=== PATIENT | male | born 1965 | race Caucasian/White ===

== ENCOUNTER 2019-07-05 04:19 | Observation (INO) ==
--- NOTE | 2019-07-05 04:25 | Emergency Department Note ---
Disposition Clinical Impression: Syncope due to orthostatic hypotension, Laceration, Dehydration, Left renal mass Anemia Qualifiers: Anemia type: unspecified type Qualified Code(s): D64.9 - Anemia, unspecified GI bleed Qualifiers: GI bleed type/associated pathology: melena Qualified Code(s): K92.1 - Melena Disposition: Admitted As Inpatient Condition: Fair Time of Disposition: 07:40 Syncope HPI - General Chief Complaint: ED Syncope Stated Complaint: Stood up to urniate and felt dizzy and fell down striking his head Time Seen by Provider: 07/05/19 04:22 Source: patient, EMS Mode of arrival: EMS Limitations: no limitations Nursing Notes Reviewed: Yes Vital Signs Reviewed: Yes - History of Present Illness HPI Narrative: 54-year-old male presents to the emergency department. He got up from sleeping in bed in the median felt lightheaded and went down to the ground. He did suffer a laceration to his right frontal scalp. He denies any loss of consciousness. He states that he tried to get back up and started to feel lightheaded and dizzy once again. States that he felt like maybe he was dehydrated because he was thirsty. He did not crash yesterday and did not drink that much fluid. He also states that he was postponing and did have some slight chest pain but does not describe it as a heaviness or pressure or sharp; just noticed that it was there. Denies any coronary artery disease Pt Subjective Complaint: loss of consciousness, felt faint, almost passed out Onset (ago): Just [employer] Number of episodes: 2 Duration: minutes(s) (2) Prodromal Symptoms: lightheaded Witnessed: no Context: at rest, getting out of bed Injuries Sustained Associated with Event: head (small laceration/contusion) Current Symptoms: none History: none Treatments prior to arrival: none, other (C collar placement) - Related Data Comment: Patient did have a c-collar placed prior to arrival. Home Medications Medication Instructions Recorded Confirmed No Known Home Drugs 07/05/19 07/05/19 Allergies Allergy/AdvReac Type Severity Reaction Status Date / Time No Known Allergies Allergy Verified 07/05/19 05:03 All systems ED: reviewed and negative except as stated. Constitutional: Denies: fever, chills, weakness, weight change Eyes: Denies: eye pain, eye discharge, vision change ENT ED: Denies: ear pain, throat pain, dental pain, hearing loss, epistaxis, congestion, dysphagia Cardiovascular: Denies: chest pain, palpitations, dyspnea on exertion, edema, syncope Respiratory: Denies: cough, dyspnea, wheezes, hemoptysis, stridor Gastrointestinal: Denies: abdominal pain, nausea, vomiting, diarrhea, constipation, hematemesis, melena, hematochezia Genitourinary: Denies: urgency, dysuria, frequency, hematuria Musculoskeletal: Denies: back pain, neck pain, arthralgia, myalgia Integumentary: Denies: rash, abrasion, lesions Neurological: Denies: headache, weakness, numbness, paresthesias, confusion, abnormal gait, vertigo Psychiatric: Denies: anxiety, depression, suicidal thoughts, homicidal thoughts, auditory hallucinations, visual hallucinations Endocrine: Denies: fatigue Hematological/Lymphatic: Denies: easy bleeding, easy bruising Allergic/Immunologic: Denies: facial swelling, urticaria Past Medical History - Past Medical History Attestation: Yes The following information was validated with the patient. Source: patient, nursing notes reviewed Physical Exam - General Limitations: no limitations General appearance: alert, in no apparent distress - Head Head exam: atraumatic, normocephalic, normal inspection, other (Except for a small less than 1.5 cm frontal scalp laceration just right of the midline) - Eye Eye exam: Present: normal appearance, PERRL, EOMI. Absent: scleral icterus, conjunctival injection, miosis, mydriasis, periorbital swelling, periorbital tenderness - ENT ENT exam: normal exam, normal oropharynx, mucous membranes moist - Neck Neck exam: Present: normal inspection, full ROM, trachea midline. Absent: tenderness - Chest Chest inspection: Present: normal inspection, symmetric chest wall rise. Absent: tenderness - Respiratory Respiratory exam: Present: normal lung sounds bilaterally. Absent: respiratory distress, wheezes - Cardiovascular Cardiovascular exam: Present: regular rate, normal rhythm, normal heart sounds - Abdominal Exam Abdominal exam: Present: soft, Non-Tender, normal bowel sounds. Absent: tenderness, distention, guarding, rebound, rigidity - Extremities Exam Extremities exam: Present: normal inspection, full ROM, normal capillary refill. Absent: tenderness, pedal edema - Back Exam Back exam: Present: normal inspection, full ROM. Absent: tenderness, CVA t enderness (R), CVA tenderness (L) - Neurological Exam Neurological exam: Present: alert, oriented X3, CN II-XII intact - Expanded Neurological Exam Patient oriented to: Present: person, place, time Speech: Present: fluid speech. Absent: receptive aphasia, expressive aphasia Cranial nerves: EOM function (II, III, IV, ): Normal, facial sensation (V): Normal, facial palsy (VII): Normal, gag reflex (IX): Normal, spinal accessory function (XI): Normal, tongue deviation (XII): Normal Cerebellar function: finger to nose: Normal, heel to garcía: Normal Coma Scale Eye Opening: Spontaneous Coma Scale Motor Response: Obeys Commands Coma Scale Verbal Response: Oriented Coma Scale Total: 15 - Psychiatric Psychiatric exam: Present: normal affect, normal mood. Absent: depressed - Skin Skin exam: Present: warm, dry, intact, normal color, other (Present small less than 1.5 cm laceration to the right frontal scalp) Course Course Narrative: Patient was placed in examination room. H&P is obtained. Patient had a syncopal episode after standing up from sleeping in bed. He did fall and hit his head. He did not stand up again and felt lightheaded once again. He denies any blurry vision or visual changes. Does not take any a nticoagulants. Therefore a syncope workup was obtained. Including EKG basic lab work and a CT of his head. CT his head did not show any intercranial pathology. The lacerations were repaired by me. Patient then had a CTA of his chest and the pelvis to rule out dissection. As he had some chest pain yesterday as well as a syncopal episode today. The CTA did not show an intra-thoracic pathology there was no dissection however, there is a complex left 2.5 same year renal cyst/mass. With the anemia which is new along with this finding there is a concern for a renal cell carcinoma. Patient will be admitted. Type and screen was obtained. Patient will be admitted and a consult will be made for him to surgery as well as urology the hospitalist. I did speak with and she does not sit the patient to her service Patient did add an approximate 705 when I was doing the laceration repair that he has been having dark stools. Hemoccult was obtained at that point. There is no rectal masses palpable. There was one hemorrhoid that was nonthrombosed. Stool is very dark and tarry. And for that reason Protonix 80 mg IV bolus was given followed by an 8 mg an hour drip - Reevaluation(s) Reevaluation #1: Patient is resting comfortably. Time: 04:42 - Consultations Consultation #1: Time: 08:09 Vital Signs Temperature 98.8 F 07/05/19 04:55 Pulse Rate 81 07/05/19 04:55 Respiratory Rate 20 07/05/19 04:55 Blood Pressure 129/78 07/05/19 04:55 O2 Sat by Pulse Oximetry 99 07/05/19 04:55 Temperature 98.8 F 07/05/19 04:55 Pulse Rate 84 07/05/19 07:46 Respiratory Rate 19 07/05/19 07:46 Blood Pressure 123/71 07/05/19 07:46 O2 Sat by Pulse Oximetry 98 07/05/19 07:46 Oxygen Delivery Oxygen Delivery Room Air Procedures - Laceration Laceration 1 Site: scalp Side (If applicable): right Size (cm): 1.5 Description: linear Depth: involves muscle layer Local Anesthetic: lidocaine 1% Amount of Anesthesia Used (mL): 4 Pre-repair: wound explored, irrigated extensively, deep structures intact Skin layer closed with: nylon Size: 5-0 Number of sutures/yamile: 6 Technique: running Laceration 2 Site: scalp Side (If applicable): right Size (cm): 0.5 Description: linear Depth: simple, single layer Local Anesthetic: lidocaine 1% Amount of Anesthesia Used (mL): 1 Pre-repair: wound explored, irrigated extensively, deep structures intact Skin layer closed with: nylon Size: 5-0 Number of sutures/yamile: 1 Technique: simple, interrupted Syncope - MDM Narrative Medical decision making narrative: Patient was placed in examination room. I did orthostatic blood pressures. The EKG. CT scan of his head neck. C-collar sorry in place. It was placed by EMS. He denies any ripping or tearing chest pain. However I do feel that he is clinically dehydrated and normal saline bolus was given. I we will obtain a CT of his head neck as mentioned The laceration will be repaired. I am also going to obtain a CTA of his chest and pelvis to rule out dissection since this did occur twice this to ensure this is not the case as he did have chest pain yesterday and then developed a syncopal episode this morning. - Differential Diagnosis Likely: syncope due to orthostatic hypotension, intracerebral hemorrhage, dehydration/metabolic disorder, trauma secondary to event - Medical Records Medical records reviewed: Yes I reviewed the patient's medical records. - Lab Data Lab results reviewed: Yes I reviewed the patient's lab results. Result diagrams: 07/05/19 05:04 07/05/19 05:04 Lab Results 07/05/19 07/05/19 07/05/19 Range/Units 05:04 05:04 05:04 WBC 13.2 H (4.3-11.1) K/mcL RBC 3.17 L (4.19-5.50) M/mcL Hgb 9.9 L (12.9-16.9) g/dL Hct 28.8 L (37.5-50.1) % MCV 90.9 (83.0-100.0) fL MCH 31.2 (28.0-33.3) pg MCHC 34.4 (31.6-35.5) g/dL RDW 12.4 (11.5-14.5) % Plt Count 235 (140-400) K/mcL MPV 11.1 (9.4-12.4) fL Immature Gran % 1.1 (0-4) % Seg Neutrophils % 78.2 % Lymphocytes % 12.7 % Monocytes % 5.7 % Eosinophils % 1.8 % Basophils % 0.5 % Neutrophils # 10.3 H (1.6-8.9) K/mcL Lymphocytes # 1.7 (0.6-4.6) K/mcL Monocytes # 0.8 (0.0-1.3) K/mcL Eosinophils # 0.2 (0.0-0.6) K/mcL Basophils # 0.1 (0.0-0.2) K/mcL PT 11.9 (9.4-12.1) Seconds INR 1.0 APTT 27.9 (26.0-36.0) Seconds Sodium 144 (136-145) mEq/L Potassium 3.9 (3.5-5.1) mEq/L Chloride 112 H (98-107) mEq/L Carbon Dioxide 27 (23-29) mEq/L BUN 35 H (6-20) mg/dL Creatinine 1.01 (0.70-1.30) mg/dL Est GFR ( Amer) > 60 (> 60) Est GFR (Non-Af Amer) > 60 (> 60) BUN/Creatinine Ratio 35 H (6-26) Glucose 132 H (70-105) mg/dL Calculated Osmolality 308 H (280-300) Calcium 8.6 (8.6-10.3) mg/dL Total Bilirubin 0.2 L (0.3-1.0) mg/dL AST 15 (13-39) Units/L ALT 17 (7-52) Units/L Alkaline Phosphatase 47 (34-104) Units/L Troponin I < 0.03 (< 0.04) ng/mL Serum Total Protein 5.6 L (6.4-8.9) g/dL Albumin 3.5 (3.5-5.7) g/dL Globulin 2.1 L (2.4-3.5) g/dL Albumin/Globulin Ratio 1.7 (1.1-2.2) Stool Occult Bld Scrn (Negative) 07/05/19 Range/Units 07:30 WBC (4.3-11.1) K/mcL RBC (4.19-5.50) M/mcL Hgb (12.9-16.9) g/dL Hct (37.5-50.1) % MCV (83.0-100.0) fL MCH (28.0-33.3) pg MCHC (31.6-35.5) g/dL RDW (11.5-14.5) % Plt Count (140-400) K/mcL MPV (9.4-12.4) fL Immature Gran % (0-4) % Seg Neutrophils % % Lymphocytes % % Monocytes % % Eosinophils % % Basophils % % Neutrophils # (1.6-8.9) K/mcL Lymphocytes # (0.6-4.6) K/mcL Monocytes # (0.0-1.3) K/mcL Eosinophils # (0.0-0.6) K/mcL Basophils # (0.0-0.2) K/mcL PT (9.4-12.1) Seconds INR APTT (26.0-36.0) Seconds Sodium (136-145) mEq/L Potassium (3.5-5.1) mEq/L Chloride (98-107) mEq/L Carbon Dioxide (23-29) mEq/L BUN (6-20) mg/dL Creatinine (0.70-1.30) mg/dL Est GFR ( Amer) (> 60) Est GFR (Non-Af Amer) (> 60) BUN/Creatinine Ratio (6-26) Glucose (70-105) mg/dL Calculated Osmolality (280-300) Calcium (8.6-10.3) mg/dL Total Bilirubin (0.3-1.0) mg/dL AST (13-39) Units/L ALT (7-52) Units/L Alkaline Phosphatase (34-104) Units/L Troponin I (< 0.04) ng/mL Serum Total Protein (6.4-8.9) g/dL Albumin (3.5-5.7) g/dL Globulin (2.4-3.5) g/dL Albumin/Globulin Ratio (1.1-2.2) Stool Occult Bld Scrn Positive A (Negative) - Radiology Data Radiology results reviewed: Yes I reviewed the patient's radiology results. HISTORY: ORDERING SYSTEM PROVIDED HISTORY: syncope FINDINGS: The lungs are without acute focal process. No effusion or pneumothorax. The cardiomediastinal silhouette is normal. The osseous structures are intact without acute process. XR/XR chest 1V portable IMPRESSION: Negative chest. D/ / Beryl Harding MD / Beryl Harding MD Interpreting Provider: Beryl Harding MD CT/CT CTA Dissection Study IMPRESSION: *No acute traumatic injury involving the chest, abdomen, and pelvis. *Indeterminate 3 mm noncalcified pulmonary nodule in the left lower lobe. Please see the follow-up imaging recommendations below. *Indeterminate cyst in the lower pole of the left kidney measuring 2.5 cm. This does not be criteria for simple cyst and follow up CT or MRI in a renal mass protocol is recommended for further evaluation. *Nonobstructing stone in the mid pole of the right kidney. D/ / Justus Garcia MD / Justus Garcia MD Interpreting Provider: Justus Garcia MD CT/CT head/brain wo con IMPRESSION: 1. No acute intracranial abnormality. 2. Thickened secretions in the left maxillary sinus, correlate with signs of acute sinusitis. D/ / Justus Garcia MD / Justus Garcia MD Interpreting Provider: Justus Garcia MD RDER #: [id number] CT/CT cervical spine wo con IMPRESSION: 1. No evidence of acute fracture in the cervical spine. D/ / Justus Garcia MD / Justus Garcia MD Interpreting Provider: Justus Garcia MD cc: Jeromy Wharton; ~ EXAMINATION: ONE XRAY VIEW OF THE CHEST 07/05/2019 4:47 am COMPARISON: 08/14/2008 HISTORY: ORDERING SYSTEM PROVIDED HISTORY: syncope FINDINGS: The lungs are without acute focal process. No effusion or pneumothorax. The cardiomediastinal silhouette is normal. The osseous structures are intact without acute process. XR/XR chest 1V portable IMPRESSION: Negative chest. D/ / Beryl Harding MD / Beryl Harding MD Interpreting Provider: Beryl Harding MD - EKG Data EKG attestation: Yes I reviewed and interpreted this EKG. EKG results narrative: EKG obtained and reviewed and interpreted by me. Normal sinus rhythm 70 bpm, normal axis normal intervals, no acute ST elevations or depressions to suggest infarction or ischemia. Compared to August 14, 2018 there is no acute changes. Critical Care Time Critical Care Time: Yes Total Critical Care Time: 30 Attestation: The high probability of a clinically significant, sudden or life threatening deterioration of the patient's condition required my full and direct attention, intervention and personal management.
[2019-07-05] MEDS ORDERED: 0.9 % Sodium Chloride 1,000 ML IVC ONE (04:28)
[2019-07-05] MEDS ORDERED: Td (TENIVAC) Vaccine 0.5 ML VIAL IM ONE (04:35)
[2019-07-05] MEDS ORDERED: Lidocaine -MPF 2% 5 ML VIAL INFILT ONE (04:36)
[2019-07-05] MEDS ORDERED: Isovue-370 500 ML BOTTLE IVP ONE (04:43)
[2019-07-05 05:20] LABS: Basophils # 0.1 K/mcL (0.0-0.2); Basophils % 0.5 %; Eosinophils # 0.2 K/mcL (0.0-0.6); Eosinophils % 1.8 %; Hematocrit 28.8 % (37.5-50.1); Hemoglobin 9.9 g/dL (12.9-16.9); Immature Granulocytes % 1.1 % (0-4); Lymphocytes # 1.7 K/mcL (0.6-4.6); Lymphocytes % 12.7 %; Mean Corpuscular HGB Conc 34.4 g/dL (31.6-35.5); Mean Corpuscular Hemoglobin 31.2 pg (28.0-33.3); Mean Corpuscular Volume 90.9 fL (83.0-100.0); Mean Platelet Volume 11.1 fL (9.4-12.4); Monocytes # 0.8 K/mcL (0.0-1.3); Monocytes % 5.7 %; Neutrophils # 10.3 K/mcL (1.6-8.9); Platelet Count 235 K/mcL (140-400); Red Blood Count 3.17 M/mcL (4.19-5.50); Red Cell Distribution Width 12.4 % (11.5-14.5); Segmented Neutrophils % 78.2 %; White Blood Count 13.2 K/mcL (4.3-11.1)
[2019-07-05 05:27] LABS: Prothrombin Time 11.9 Seconds (9.4-12.1)
[2019-07-05 05:30] LABS: Activated Partial Thrombo Time 27.9 Seconds (26.0-36.0)
[2019-07-05 05:39] LABS: Alanine Aminotransferase 17 Units/L (7-52); Albumin 3.5 g/dL (3.5-5.7); Albumin/Globulin Ratio 1.7 (1.1-2.2); Alkaline Phosphatase 47 Units/L (34-104); Aspartate Amino Transferase 15 Units/L (13-39); BUN/Creatinine Ratio 35 (6-26); Bilirubin,Total 0.2 mg/dL (0.3-1.0); Blood Urea Nitrogen 35 mg/dL (6-20); Calcium 8.6 mg/dL (8.6-10.3); Carbon Dioxide 27 mEq/L (23-29); Chloride 112 mEq/L (98-107); Globulin 2.1 g/dL (2.4-3.5); Glucose 132 mg/dL (70-105); Osmolality,Calculated 308 (280-300); Potassium 3.9 mEq/L (3.5-5.1); Sodium 144 mEq/L (136-145); Total Protein 5.6 g/dL (6.4-8.9); Troponin I < 0.03 ng/mL (< 0.04); eGFR For African Americans > 60 (> 60); eGFR For Non-African Americans > 60 (> 60)
[2019-07-05] MEDS ORDERED: Pantoprazole 40 MG VIAL IVP ONE (07:50)
[2019-07-05] MEDS: Pantoprazole 40 MG in 0.9 % Sodium Chloride Mini Bag 100 ML IVC SCH ×4 (08:52→23:32)
[2019-07-05] MEDS ORDERED: Acetaminophen 325 MG TABLET PO PRN (09:32)
[2019-07-05] MEDS ORDERED: Naloxone 0.4 MG/ML INJ IVP PRN (09:32)
[2019-07-05] MEDS ORDERED: Ondansetron 4 MG/2 ML VIAL IVP PRN (09:32)
--- NOTE | 2019-07-05 09:35 | Internal Med History&Physical ---
Date of Encounter: 07/05/19 Time of Encounter: 09:35 Internal Medicine - H&P: HPI History of present illness: Mr. Almonte is a 54 year old male with was no significant past medical history except for one episode of seizure long time ago who presented to the ER after with a complaint of sudden episode of loss of consciousness, what he end up hitting his OxyContin is scant and sustained a laceration. 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 This does not be criteria for a simple cyst and follow up CT or MRI in a renal mass protocol is recommended for further evaluation. the patient was admitted for further evaluation and management Past Med Surg Social Fam HX - Past Medical History Medical history: no medical history Psychiatric history: no psych history - Social History Smoking Status: Never smoker Smokeless Tobacco Status: No Alcohol use: rarely Drug use: none - Family History Father Name: Patient denies family history of prostate cancer Internal Medicine - H&P: Meds Pantoprazole Sodium [Protonix] 40 mg PO BID 14 Days #28 tablet. 07/07/19 [Rx] Sucralfate [Carafate] 1 gm PO QIDAC 28 Days #112 tablet 07/07/19 [Rx] Allergy/AdvReac Type Severity Reaction Status Date / Time No Known Allergies Allergy Verified 07/05/19 16:23 All Systems PM: A 10-system review of systems was performed and is negative for pertinent findings except as documented above in the HPI. - Constitutional Vitals: Temp Pulse Resp BP Pulse Ox 98.8 F 86 18 117/70 99 07/05/19 04:55 07/05/19 08:53 07/05/19 08:53 07/05/19 08:53 07/05/19 08:53 General appearance: Present: A&O X 3 Exam: . - Head Additional comments: right frontal laceration was noted - Neck Neck exam general surgery: Present: supple, trachea midline. Absent: lymphadenopathy - Respiratory Respiratory exam: Present: CTAB. Absent: accessory muscle use, rales, rhonchi, wheezes - Cardiovascular Cardiovascular exam: Present: RRR, +S1, +S2. Absent: diastolic murmur, gallop, rubs, systolic murmur - GI/Abdominal GI/Abdominal exam: Present: normal bowel sounds, soft, no peritoneal signs. Ab sent: distended, tenderness - Extremities Exam Extremities exam: Present: warm, radial pulses palpable and symmetrical. Absent: calf tenderness, cyanotic, pedal edema Internal Med - H&P Results - Labs CBC & Chem 7: 07/07/19 14:43 07/07/19 02:36 Labs: Short CBC 07/05/19 Range/Units 05:04 WBC 13.2 H (4.3-11.1) K/mcL Hgb 9.9 L (12.9-16.9) g/dL Hct 28.8 L (37.5-50.1) % Plt Count 235 (140-400) K/mcL Neutrophils # 10.3 H (1.6-8.9) K/mcL BMP 07/05/19 05:04 Sodium 144 Potassium 3.9 Chloride 112 H Carbon Dioxide 27 BUN 35 H Creatinine 1.01 Glucose 132 H Calcium 8.6 Cardiac Enzymes 07/05/19 Range/Units 05:04 Troponin I < 0.03 (< 0.04) ng/mL Liver Function 07/05/19 Range/Units 05:04 Total Bilirubin 0.2 L (0.3-1.0) mg/dL AST 15 (13-39) Units/L ALT 17 (7-52) Units/L Alkaline Phosphatase 47 (34-104) Units/L Albumin 3.5 (3.5-5.7) g/dL - Impressions ITS Impressions Chest X-Ray 07/05/19 04:28 IMPRESSION: Negative chest. D/ / Beryl Harding MD / Beryl Harding MD Interpreting Provider: Beryl Harding MD Cervical Spine CT 07/05/19 04:29 IMPRESSION: 1. No evidence of an acute fracture in the cervical spine. D/ / 07/05/2019 07:28:07 Justus Garcia MD / srini Interpreting Provider: Justus Garcia MD Head CT 07/05/19 04:29 IMPRESSION: 1. No acute intracranial abnormality. 2. Thickened secretions in the left maxillary sinus, correlate with signs of acute sinusitis. D/ / 07/05/2019 07:29:59 Justus Garcia MD / srini Interpreting Provider: Justus Garcia MD Dissection 07/05/19 04:43 IMPRESSION: 1. No acute traumatic injury involving the chest, abdomen, and pelvis. 2. Indeterminate 3 mm noncalcified pulmonary nodule in the left lower lobe. Please see the follow-up imaging recommendations below. 3. Indeterminate cyst in the lower pole of the left kidney measuring 2.5 cm. This does not be criteria for a simple cyst and follow up CT or MRI in a renal mass protocol is recommended for further evaluation. 4. Nonobstructing stone in the mid pole of the right kidney. RECOMMENDATIONS: Fleischner Society guidelines for follow-up and management of incidentally detected pulmonary nodules: Single Solid Nodule: Nodule size less than 6 mm In a low-risk patient, no routine follow-up. In a high-risk patient, optional CT at 12 months. - Low risk patients include individuals with minimal or absent history of smoking and other known risk factors. - High risk patients include individuals with a history or smoking or known risk factors. Radiology 2017 http://pubs.rsna.org/doi/full/10.1148/radiol.[email or web address] D/ / 07/05/2019 07:33:43 Justus Garcia MD / srini Interpreting Provider: Justus Garcia MD - Assessment and Plan (1) Syncope Status: Acute Assessment and plan: Syncope DD *vasovagal episode *TIA *Arrhythmia *Seizure PLAN: - Telemetry - Cardiac enzymes x 2 q 8hr - EKG now and in AM - 2D Echo - Carotid duplex - UA Qualifiers: Qualified Code(s): R55 - Syncope and collapse (2) Anemia Status: Acute Assessment and plan: we'll continue to monitor H&H, stool is Hemoccult positive . Qualifiers: Anemia type: unspecified type Qualified Code(s): D64.9 - Anemia, unspecified (3) Laceration Status: Acute (4) Left renal mass Status: Acute Assessment and plan: , CT scan of the abdomen revealed incidental finding of Indeterminate cyst in the lower pole of the left kidney measuring 2.5 cm. This does not be criteria for a simple cyst and follow up CT or MRI in a renal mass protocol is recommended for further evaluation.we'll consult neurology for further evaluation and management - Time Spent With Patient Total time spent is greater than 50% in coordination of care (as documented) at patient's floor/unit and/or counseling patient:
[2019-07-05] MEDS: 0.9 % Sodium Chloride 1,000 ML IVC SCH ×2 (10:41→19:29)
[2019-07-05] MEDS: *HR* HYDROcodone/Acet 5/325 mg TABLET PO PRN (13:00)
[2019-07-06] MEDS: Pantoprazole 40 MG in 0.9 % Sodium Chloride Mini Bag 100 ML IVC SCH ×4 (04:25→19:28)
[2019-07-06 05:46] LABS: Basophils # 0.1 K/mcL (0.0-0.2); Basophils % 0.7 %; Eosinophils # 0.5 K/mcL (0.0-0.6); Eosinophils % 5.8 %; Hematocrit 23.9 % (37.5-50.1); Immature Granulocytes % 1.7 % (0-4); Lymphocytes % 24.2 %; Mean Corpuscular HGB Conc 33.5 g/dL (31.6-35.5); Mean Corpuscular Volume 92.6 fL (83.0-100.0); Mean Platelet Volume 11.2 fL (9.4-12.4); Monocytes # 0.6 K/mcL (0.0-1.3); Monocytes % 6.9 %; Platelet Count 185 K/mcL (140-400); Red Blood Count 2.58 M/mcL (4.19-5.50); Red Cell Distribution Width 13.2 % (11.5-14.5); Segmented Neutrophils % 60.7 %; White Blood Count 8.3 K/mcL (4.3-11.1)
[2019-07-06 05:56] LABS: Prothrombin Time 11.9 Seconds (9.4-12.1)
[2019-07-06 06:10] LABS: Alanine Aminotransferase 13 Units/L (7-52); Albumin/Globulin Ratio 1.7 (1.1-2.2); Alkaline Phosphatase 39 Units/L (34-104); Aspartate Amino Transferase 11 Units/L (13-39); BUN/Creatinine Ratio 19 (6-26); Bilirubin,Total 0.1 mg/dL (0.3-1.0); Blood Urea Nitrogen 18 mg/dL (6-20); Calcium 8.1 mg/dL (8.6-10.3); Carbon Dioxide 27 mEq/L (23-29); Chloride 112 mEq/L (98-107); Chol/HDL Ratio 3.7 (0-4.9); Cholesterol 114 mg/dL (< 200); Globulin 1.8 g/dL (2.4-3.5); Glucose 107 mg/dL (70-105); HDL Cholesterol 31 mg/dL (40-59); LDL Cholesterol,Calculated 60 mg/dL (0-99); Magnesium 1.7 mg/dL (1.6-2.6); Osmolality,Calculated 298 (280-300); Phosphorous 2.2 mg/dL (2.7-4.5); Potassium 3.4 mEq/L (3.5-5.1); Sodium 143 mEq/L (136-145); Total Protein 4.8 g/dL (6.4-8.9); Triglycerides 117 mg/dL (< 150); eGFR For African Americans > 60 (> 60); eGFR For Non-African Americans > 60 (> 60)
--- NOTE | 2019-07-06 07:53 | Internal Med Progress Note ---
<Markie Bernal - Last Filed: 07/06/19 14:23> Hospitalist Progress Note - Encounter Date of Encounter: 07/06/19 Time of Encounter: 09:50 - Exam Vitals: Temp Pulse Resp BP Pulse Ox 98.7 F 72 16 124/75 94 07/06/19 10:45 07/06/19 10:45 07/06/19 10:45 07/06/19 10:45 07/06/19 10:45 - Assessment and Plan (1) Laceration Current Visit: Yes Status: Acute (2) Anemia Current Visit: Yes Status: Acute (3) Left renal mass Current Visit: Yes Status: Acute (4) Syncope Current Visit: Yes Status: Acute - Time Spent with Patient Total time spent is greater than 50% in coordination of care (as documented) at patient's floor/unit and/or counseling patient: Internal Medicine: Result - Labs CBC & Chem 7: 07/06/19 04:52 07/06/19 04:52 Labs: Short CBC 07/06/19 Range/Units 04:52 WBC 8.3 (4.3-11.1) K/mcL Hgb 8.0 L D (12.9-16.9) g/dL Hct 23.9 L (37.5-50.1) % Plt Count 185 (140-400) K/mcL Neutrophils # 5.0 (1.6-8.9) K/mcL BMP 07/06/19 04:52 Sodium 143 Potassium 3.4 L Chloride 112 H Carbon Dioxide 27 BUN 18 Creatinine 0.94 Glucose 107 H Calcium 8.1 L Cardiac Enzymes 07/05/19 07/05/19 Range/Units 15:35 22:13 Troponin I < 0.03 < 0.03 (< 0.04) ng/mL Liver Function 07/06/19 Range/Units 04:52 Total Bilirubin 0.1 L (0.3-1.0) mg/dL AST 11 L (13-39) Units/L ALT 13 (7-52) Units/L Alkaline Phosphatase 39 (34-104) Units/L Albumin 3.0 L (3.5-5.7) g/dL - ABG Interpretation ABG results: PT/INR, D-dimer PT 11.9 Seconds (9.4-12.1) 07/06/19 04:52 - Impressions Impressions Echocardiogram 08/25/19 09:34 Impressions: LVEF 60%. Normal LV chamber size, wall thickness and function. Normal left ventricular diastolic function. Normal right ventricular structure and function. No evidence of pulmonary hypertension. No significant valvular dysfunction Left Ventricular Wall Motion: Rest Echo Findings All wall segments showed normal motion. Findings: Study Quality * Technically adequate exam. ECG Findings * Normal sinus rhythm. Left Ventricle * LVEF 60%. * Normal LV chamber size, wall thickness and function. * Normal left ventricular diastolic function. Right Ventricle * Normal right ventricular structure and function. Left Atrium * Normal left atrial size. Right Atrium * Normal right atrial size. Aortic Valve * Aortic valve not well visualized. * No aortic regurgitation. * No aortic stenosis. Mitral Valve * Normal mitral valve structure. * No mitral regurgitation. * No mitral stenosis. Tricuspid Valve * Trace tricuspid regurgitation. * No tricuspid stenosis. * Normal tricuspid valve structure. * No evidence of pulmonary hypertension. Pulmonic Valve * No pulmonic regurgitation. Aorta * Normally sized aortic root. Pericardium * The pericardium appears normal. IVC * The IVC is not well evaluated. Pulmonary Artery * Pulmonary artery not well visualized. Consult Discharge Plan - Plan Referrals: NONE,PCP [Primary Care Provider] - - Attending Attestation I saw evaluated and examined this patient and reviewed objective data including labs and my medical decision-making was reviewed with the Resident Physician, Skinny Yun. I agree with the documented findings, disposition and treatment plan as described except to any changes set forth below. We independently had [id number] contact with the patient. Patient has not had further episodes of melena today. No dizziness or ligh theadedness at this time. Nothing by mouth for possible upper GI endoscopy later today. Continue IV PPI. Monitor H&H. Replete electrolytes. <Skinny Yun I - Last Filed: 07/06/19 19:12> Hospitalist Progress Note - Encounter Date of Encounter: 07/06/19 Time of Encounter: 09:20 - Subjective Interval History: Mr Almonte is 54 year old male with no past medical history admitted due to syncope attack . today patient was seen and examined . he is doing well , denies chest pain or shortness of breath , denies cough , fever chills headaches n umbness or tingling , denies nausea , vomiting , diarrhea or constipation , but notice dark stool discoloration , denies change in urinary habits . - Exam Vitals: Temp Pulse Resp BP Pulse Ox 98.2 F 69 16 128/75 98 07/06/19 07:25 07/06/19 07:25 07/06/19 07:25 07/06/19 07:25 07/06/19 07:25 Exam: General - Alert and oriented x 3, no acute distress and appears comfortable HEENT - Conjunctiva clear, no nasal or oral mucosal lesions/ulcerations Heme/Lymph - No cervical or supraclavicular lymph node enlargement or tenderness. No pallor. Heart - S1S2 regular in rate and rhythm without murmurs, clicks or rubs. No peripheral edema. Radial pulses equal and strong Lungs - Unlabored breathing, clear to auscultation bilaterally without wheezes or crackles; no decrease in chest expansion Gastrointestinal - Soft, nontender, nondistended. Unable to palpate any hepatosplenomegaly Neurological - Gait normal, muscle strength 5/5 in all four extremities, sensation intact Musculoskeletal - Full ROM, no joint tenderness psych - normal mood and behavior - Assessment and Plan (1) Syncope Current Visit: Yes Status: Acute Assessment and Plan: patint presented to ER after syncope which lasted 6 mins , with feeling lightheaded before the attack , most likley this is due to upper GIT bleeding , today hb is 8 CXR, CT spine were nefgative CTA of chest and abdomen show pulmonary nodule 3 mm in size echo was normal and EKG negative for ischemia CT head was normal (2) Anemia Current Visit: Yes Status: Acute Assessment and Plan: Mr. Almonte presented to the ED after syncopal episode on 07/05/19. CBC showed hemoglobin of 9.9, next day hemoglobin decreased to 8.0 Hemoccult was positive Does report history of taking Advil few times a week and had increased intake in the past few days Reports dark stools the past 4 days Does report eating a balanced diet including meat Due to anemia, would recommend iron study and ferritin Plan for EGD he is on NPO continue IV protonix monitor H and H - Time Spent with Patient Total time spent is greater than 50% in coordination of care (as documented) at patient's floor/unit and/or counseling patient: Internal Medicine: Result - Labs CBC & Chem 7: 07/06/19 15:04 07/06/19 04:52 Labs: Short CBC 07/06/19 Range/Units 04:52 WBC 8.3 (4.3-11.1) K/mcL Hgb 8.0 L D (12.9-16.9) g/dL Hct 23.9 L (37.5-50.1) % Plt Count 185 (140-400) K/mcL Neutrophils # 5.0 (1.6-8.9) K/mcL BMP 07/06/19 04:52 Sodium 143 Potassium 3.4 L Chloride 112 H Carbon Dioxide 27 BUN 18 Creatinine 0.94 Glucose 107 H Calcium 8.1 L Cardiac Enzymes 07/05/19 07/05/19 07/05/19 Range/Units 09:57 15:35 22:13 Troponin I < 0.03 < 0.03 < 0.03 (< 0.04) ng/mL Liver Function 07/06/19 Range/Units 04:52 Total Bilirubin 0.1 L (0.3-1.0) mg/dL AST 11 L (13-39) Units/L ALT 13 (7-52) Units/L Alkaline Phosphatase 39 (34-104) Units/L Albumin 3.0 L (3.5-5.7) g/dL - ABG Interpretation ABG results: PT/INR, D-dimer PT 11.9 Seconds (9.4-12.1) 07/06/19 04:52 - Impressions Impressions Cervical Spine CT 07/05/19 04:29 IMPRESSION: 1. No evidence of an acute fracture in the cervical spine. D/ / 07/05/2019 07:28:07 Justus Garcia MD / srini Interpreting Provider: Justus Garcia MD Head CT 07/05/19 04:29 IMPRESSION: 1. No acute intracranial abnormality. 2. Thickened secretions in the left maxillary sinus, correlate with signs of acute sinusitis. D/ 07/05/2019 07:29:59 Justus Garcia MD / srini Interpreting Provider: Justus Garcia MD Dissection 07/05/19 04:43 IMPRESSION: 1. No acute traumatic injury involving the chest, abdomen, and pelvis. 2. Indeterminate 3 mm noncalcified pulmonary nodule in the left lower lobe. Please see the follow-up imaging recommendations below. 3. Indeterminate cyst in the lower pole of the left kidney measuring 2.5 cm. This does not be criteria for a simple cyst and follow up CT or MRI in a renal mass protocol is recommended for further evaluation. 4. Nonobstructing stone in the mid pole of the right kidney. RECOMMENDATIONS: Fleischner Society guidelines for follow-up and management of incidentally detected pulmonary nodules: Single Solid Nodule: Nodule size less than 6 mm In a low-risk patient, no routine follow-up. In a high-risk patient, optional CT at 12 months. - Low risk patients include individuals with minimal or absent history of smoking and other known risk factors. - High risk patients include individuals with a history or smoking or known risk factors. Radiology 2017 http://pubs.rsna.org/doi/full/10.1148/radiol.6910436939 D/ / 07/05/2019 07:33:43 Justus Garcia MD / [email or web address] Interpreting Provider: Justus Garcia MD Echocardiogram 07/05/19 09:34 Impressions: LVEF 60%. Normal LV chamber size, wall thickness and function. Normal left ventricular diastolic function. Normal right ventricular structure and function. No evidence of pulmonary hypertension. No significant valvular dysfunction Left Ventricular Wall Motion: Rest Echo Findings All wall segments showed normal motion. Findings: Study Quality * Technically adequate exam. ECG Findings * Normal sinus rhythm. Left Ventricle * LVEF 60%. * Normal LV chamber size, wall thickness and function. * Normal left ventricular diastolic function. Right Ventricle * Normal right ventricular structure and function. Left Atrium * Normal left atrial size. Right Atrium * Normal right atrial size. Aortic Valve * Aortic valve not well visualized. * No aortic regurgitation. * No aortic stenosis. Mitral Valve * Normal mitral valve structure. * No mitral regurgitation. * No mitral stenosis. Tricuspid Valve * Trace tricuspid regurgitation. * No tricuspid stenosis. * Normal tricuspid valve structure. * No evidence of pulmonary hypertension. Pulmonic Valve * No pulmonic regurgitation. Aorta * Normally sized aortic root. Pericardium * The pericardium appears normal. IVC * The IVC is not well evaluated. Pulmonary Artery * Pulmonary artery not well visualized. <Markie Bernal - Last Filed: 07/06/19 14:23> (2) Anemia Qualifiers: Anemia type: unspecified type Qualified Code(s): D64.9 - Anemia, unspecified <Skinny Yun I - Last Filed: 07/06/19 19:12> (2) Anemia Qualifiers: Anemia type: unspecified type Qualified Code(s): D64.9 - Anemia, unspecified
[2019-07-06] MEDS: *HR* HYDROcodone/Acet 5/325 mg TABLET PO PRN (09:06)
--- NOTE | 2019-07-06 09:40 | Gastroenterology Consult Note ---
<Eliz Frye - Last Filed: 07/06/19 11:33> Date of Encounter: 07/06/19 Time of Encounter: 09:38 - Assessment and plan (1) Anemia due to GI blood loss Status: Acute Assessment and plan: Mr. Almonte presented to the ED after syncopal episode on 07/05/19. CBC showed hemoglobin of 9.9, next day hemoglobin decreased to 8.0 Hemoccult was positive Does report history of taking Advil few times a week and had increased intake in the past few days Reports dark stools the past 4 days Does report eating a balanced diet including meat Due to anemia, would recommend iron study and ferritin Plan for EGD Further recommendations by Dr. Perez - Time Spent With Patient Total time spent is greater than 50% in coordination of care (as documented) at patient's floor/unit and/or counseling patient: GI History of Present Illness - Data of Consult Requesting Physician: Harriet Caceres - Consult Narrative History of present illness: Mr. Almonte is a 54 year old male with no significant past medical history who presented to the ER on 07/05/19 after a recent syncopal episode while he was standing up. States that he felt dizzy lightheaded and subsequently fell hitting his head causing a laceration on right forehead. Reports the day prior to the fall he had been mowing his lawn and felt chest discomfort and uses synco pal episode he decided to present to the ER. CT of the head was within normal limits. Additionally had CT of the abdomen which revealed indeterminate cyst in the lower pole of left kidney. Additionally CBC showed hemoglobin of 9.9, repeat hemoglobin next day showed hemoglobin of 8.0. He additionally reports black stools for the past 4 days prior to presentation. He denies any previous episodes of dark stools or bright red stools in the past. Does report he takes Advil a few times a week. After further questioning stated that he had low back pain and had taken more Advil than his usual. Denies any alcohol use or any other NSAID use. Denies any epigastric pain or abdominal pain. Reports that he has never been told he is anemic but has not followed up with primary care physician in the past few years. He denies ever having a colonoscopy or an EGD in the past. Past Med Surg Social Fam HX - Past Medical History Medical history: seizures Additional medical history: Patient had once seizure event in 2013 Psychiatric history: no psych history - Past Surgical History Surgical History: no surgical history - Social History Smoking Status: Never smoker Smokeless Tobacco Status: No Alcohol use: rarely Drug use: none - Gastrointestinal Gastrointestinal: Present: melena. Absent: abdominal pain, constipation, diarrhea, nausea, vomiting - Constitutional Constitutional: no fatigue, no fever(s) - EENT Nose, mouth and throat: Absent: dysphagia, sore throat - Cardiovascular Cardiovascular ROS: Absent: chest pain, palpitations - Respiratory Respiratory IM: Absent: cough, dyspnea, hemoptysis, wheezing - Neurological ROS Neurological GI: Present: other (one recent fall). Absent: headache(s), tremor(s), weakness - Hematologic/Lymphatic Hematologic/Lymphatic pediatric: Absent: easy bleeding - Musculoskeletal Musculoskeletal ROS GI: Present: back pain - Constitutional Vitals: Temp Pulse Resp BP Pulse Ox 98.2 F 69 16 128/75 98 07/06/19 07:25 07/06/19 07:25 07/06/19 07:25 07/06/19 07:25 07/06/19 07:25 - Head Head exam: Present: normocephalic Additional comments: 3 cm laceration right forehead - Eye Eye exam: Present: EOMI, normal appearance, sclera anicteric. Absent: conjunctival injection - ENT ENT exam: Present: mucous membranes moist, normal oropharynx - Neck Neck exam general surgery: Present: full ROM, trachea midline - Respiratory Respiratory exam: Present: CTAB. Absent: wheezes - Cardiovascular Cardiovascular exam: Present: RRR, +S1, +S2 - GI/Abdominal GI/Abdominal exam: Present: normal bowel sounds, soft. Absent: firm, tenderness - Psychiatric Psychiatric exam: Present: normal affect, normal mood - Skin Skin exam: Present: dry, intact Results - Labs CBC & Chem 7: 07/06/19 04:52 07/06/19 04:52 Labs: Last Result 07/05/19 07/06/19 22:13 04:52 Calcium 8.1 L Troponin I < 0.03 Triglycerides 117 Entire Visit 07/06/19 07/06/19 07/06/19 04:52 04:52 04:52 Hgb 8.0 L D Hct 23.9 L PT 11.9 Total Bilirubin 0.1 L AST 11 L ALT 13 - ABG ABG results: PT/INR, D-dimer PT 11.9 Seconds (9.4-12.1) 07/06/19 04:52 - Impressions Impressions Echocardiogram 07/05/19 09:34 Impressions: LVEF 60%. Normal LV chamber size, wall thickness and function. Normal left ventricular diastolic function. Normal right ventricular structure and function. No evidence of pulmonary hypertension. No significant valvular dysfunction Left Ventricular Wall Motion: Rest Echo Findings All wall segments showed normal motion. Findings: Study Quality * Technically adequate exam. ECG Findings * Normal sinus rhythm. Left Ventricle * LVEF 60%. * Normal LV chamber size, wall thickness and function. * Normal left ventricular diastolic function. Right Ventricle * Normal right ventricular structure and function. Left Atrium * Normal left atrial size. Right Atrium * Normal right atrial size. Aortic Valve * Aortic valve not well visualized. * No aortic regurgitation. * No aortic stenosis. Mitral Valve * Normal mitral valve structure. * No mitral regurgitation. * No mitral stenosis. Tricuspid Valve * Trace tricuspid regurgitation. * No tricuspid stenosis. * Normal tricuspid valve structure. * No evidence of pulmonary hypertension. Pulmonic Valve * No pulmonic regurgitation. Aorta * Normally sized aortic root. Pericardium * The pericardium appears normal. IVC * The IVC is not well evaluated. Pulmonary Artery * Pulmonary artery not well visualized. Consult Discharge Plan - Plan Referrals: Perez Elise MD [Partnered Physician] - (Office will call patient with appointment. Thank you) Crow Perez MD [Partnered Physician] - (Office will call patient with appointment. Thank you) Prescriptions: Sucralfate [Carafate] 1 gm PO QIDAC 28 Days #112 tablet Pantoprazole Sodium [Protonix] 40 mg PO BID 14 Days #28 tablet. <Crow Perez - Last Filed: 07/20/19 08:13> Date of Encounter: 07/06/19 - Time Spent With Patient Total time spent is greater than 50% in coordination of care (as documented) at patient's floor/unit and/or counseling patient: GI History of Present Illness - Data of Consult Requesting Physician: Markie Bernal MD - Consult Narrative History of present illness: Mr. Almonte is a 54 year old male Past Med Surg Social Fam HX - Family History Father Name: Patient denies family history of prostate cancer - Constitutional Vitals: Temp Pulse Resp BP Pulse Ox 97.6 F 62 16 125/80 98 07/07/19 15:00 07/07/19 15:00 07/07/19 15:00 07/07/19 15:00 07/07/19 15:00 Results - Labs CBC & Chem 7: 07/07/19 14:43 07/07/19 02:36 - ABG ABG results: PT/INR, D-dimer PT 11.9 Seconds (9.4-12.1) 07/06/19 04:52 - Attending Attestation Patient presents with syncope GI bleed and anemia in a setting of NSAID intake. Plan EGD. I examined this patient and my medical decision-making was reviewed with the Resident Physician. I agree with the documented findings, disposition and treatment plan as described except to the extent set forth below.
[2019-07-06 15:40] LABS: Hematocrit 28.1 % (37.5-50.1); Hemoglobin 9.5 g/dL (12.9-16.9)
--- NOTE | 2019-07-06 18:04 | Urology - Consult Note ---
Date of Encounter: 07/06/19 Time of Encounter: 18:02 - Assessment and Plan (1) Left renal mass Current Visit: Yes Status: Acute Assessment and plan: Patient's left renal mass is likely a simple or slightly complex renal cyst. Kilo jaimes will be scheduled in outpatient for MRI abdomen. This will be arranged through my office. Please call with any questions. (2) Nocturia associated with benign prostatic hyperplasia Current Visit: Yes Status: Acute Assessment and plan: At this point patient voiding okay. I advised the patient to cut back on fluids before bedtime. If this worsens may consider trying the patient on Flomax. Urology CN:HPI Consult date: 07/06/19 Reason for consult Urology: Other (renal mass) Requesting physician: Harriet Caceres History of present illness: Dimitry is a 54-year-old male who presented to the hospital yesterday secondary to syncopal episode. Patient was found to have some Ignacio which is unsure to be chronic or acute. Patient had CT angiography performed which revealed a pos sible slightly complex left renal cyst. Patient denies any flank pain. No prior imaging before. Patient does admit to some nocturia 1-2 times per night. No dysuria or gross hematuria. Patient is not a smoker. Patient does work at the [employer] locally. He states that in the past he was exposed to significant amount of starch. Past Med Surg Social Fam HX - Past Medical History Medical history: seizures Additional medical history: Patient had once seizure event in 2012 Psychiatric history: no psych history - Past Surgical History Surgical History: no surgical history Additional surgical history: Patient denies past surgeries - Social History Smoking Status: Never smoker Smokeless Tobacco Status: No Alcohol use: rarely Drug use: none - Family History Father Name: Patient denies family history of prostate cancer Medications and Allergies No Known Home Drugs 07/05/19 [History] Allergy/AdvReac Type Severity Reaction Status Date / Time No Known Allergies Allergy Verified 07/05/19 16:23 Review of Systems - Constitutional no chills, no fever(s) - EENT Nose, mouth and throat: dizziness - Cardiovascular no chest pain, no dyspnea, no edema - Gastrointestinal no abdominal pain, no nausea, no vomiting - Genitourinary nocturia, no urinary frequency, no urinary hesitancy - Musculoskeletal no muscle weakness, no numbness - Integumentary no swelling - Neurological no sensory deficit - Psychiatric no confusion, no depression - Hematologic/Lymphatic no easy bruising, no lymphadenopathy - Allergic/Immunologic no throat swelling, no wheezing Exam Initial Vital Signs Temp Pulse Resp BP Pulse Ox 98.8 F 81 20 129/78 99 07/05/19 04:55 07/05/19 04:55 07/05/19 04:55 07/05/19 04:55 07/05/19 04:55 General/Neuological: alert and oriented x 3 Eyes: normal pupils, non-icteric Neck: no lymphadenopathy noted, supple to touch Cardiovascular: RRR, no murmurs, no JVD Respiratory: normal respiratory effort, clear bilaterally ABD: soft, nontender, no masses palpated, good bowel sounds Back: no pain on percussion bilaterally skin: no rashes noted Musculoskeletal: normal gait, FROMx4 Urology Results - Labs 07/06/19 15:04 07/06/19 04:52 Abnormal lab results WBC 13.2 K/mcL (4.3-11.1) H 07/05/19 05:04 RBC 2.58 M/mcL (4.19-5.50) L 07/06/19 04:52 Hgb 9.5 g/dL (12.9-16.9) L D 07/06/19 15:04 Hct 28.1 % (37.5-50.1) L 07/06/19 15:04 Neutrophils # 10.3 K/mcL (1.6-8.9) H 07/05/19 05:04 Potassium 3.4 mEq/L (3.5-5.1) L 07/06/19 04:52 Chloride 112 mEq/L (98-107) H 07/06/19 04:52 BUN 35 mg/dL (6-20) H 07/05/19 05:04 BUN/Creatinine Ratio 35 (6-26) H 07/05/19 05:04 Glucose 107 mg/dL (70-105) H 07/06/19 04:52 Calculated Osmolality 308 (280-300) H 07/05/19 05:04 Calcium 8.1 mg/dL (8.6-10.3) L 07/06/19 04:52 Phosphorus 2.2 mg/dL (2.7-4.5) L 07/06/19 04:52 Total Bilirubin 0.1 mg/dL (0.3-1.0) L 07/06/19 04:52 AST 11 Units/L (13-39) L 07/06/19 04:52 Serum Total Protein 4.8 g/dL (6.4-8.9) L 07/06/19 04:52 Albumin 3.0 g/dL (3.5-5.7) L 07/06/19 04:52 Globulin 1.8 g/dL (2.4-3.5) L 07/06/19 04:52 HDL Cholesterol 31 mg/dL (40-59) L 07/06/19 04:52 Stool Occult Bld Scrn Positive (Negative) A 07/05/19 07:30 Diabetes panel 07/06/19 Range/Units 04:52 Sodium 143 (136-145) mEq/L Potassium 3.4 L (3.5-5.1) mEq/L Chloride 112 H (98-107) mEq/L Carbon Dioxide 27 (23-29) mEq/L BUN 18 (6-20) mg/dL Creatinine 0.94 (0.70-1.30) mg/dL Glucose 107 H (70-105) mg/dL Calcium 8.1 L (8.6-10.3) mg/dL AST 11 L (13-39) Units/L ALT 13 (7-52) Units/L Alkaline Phosphatase 39 (34-104) Units/L Albumin 3.0 L (3.5-5.7) g/dL Triglycerides 117 (< 150) mg/dL HDL Cholesterol 31 L (40-59) mg/dL Calcium panel 07/06/19 Range/Units 04:52 Calcium 8.1 L (8.6-10.3) mg/dL Phosphorus 2.2 L (2.7-4.5) mg/dL Albumin 3.0 L (3.5-5.7) g/dL Pituitary panel 07/06/19 Range/Units 04:52 Sodium 143 (136-145) mEq/L Potassium 3.4 L (3.5-5.1) mEq/L Chloride 112 H (98-107) mEq/L Carbon Dioxide 27 (23-29) mEq/L BUN 18 (6-20) mg/dL Creatinine 0.94 (0.70-1.30) mg/dL Glucose 107 H (70-105) mg/dL Calcium 8.1 L (8.6-10.3) mg/dL Adrenal panel 07/06/19 Range/Units 04:52 Sodium 143 (136-145) mEq/L Potassium 3.4 L (3.5-5.1) mEq/L Chloride 112 H (98-107) mEq/L Carbon Dioxide 27 (23-29) mEq/L BUN 18 (6-20) mg/dL Creatinine 0.94 (0.70-1.30) mg/dL Glucose 107 H (70-105) mg/dL Calcium 8.1 L (8.6-10.3) mg/dL Total Bilirubin 0.1 L (0.3-1.0) mg/dL AST 11 L (13-39) Units/L ALT 13 (7-52) Units/L Alkaline Phosphatase 39 (34-104) Units/L Albumin 3.0 L (3.5-5.7) g/dL All other labs normal. - Imaging CT scan - abdomen: image reviewed CT scan - pelvis: image reviewed (I personally reviewed the patient's CT scan which showed a possible Bosniak 1 versus 2 renal cyst on the left side.) Consult Discharge Plan - Plan Referrals: NONE,PCP [Primary Care Provider] -
[2019-07-06 20:56] LABS: Hematocrit 25.1 % (37.5-50.1); Hemoglobin 8.6 g/dL (12.9-16.9)
--- NOTE | 2019-07-07 00:14 | Electrocardiograph Report ---
[facility] [employer] Test Date: 2019-07-05 Pat Name: Dimitry Almonte Department: [id number] Room: 3A43 Gender: M Obgyn Specialist: : 1965 Requested By: [id number] Order Number: [id number] Reading MD: Jah Hurst Measurements Intervals [place] Rate: 78 P: 42 MO: 161 QRS: 11 QRSD: 85 T: 55 QT: 381 QTc: 434 Interpretive Statements Sinus rhythm Borderline low voltage, extremity leads Abnormal R-wave progression, early transition Electronically Signed On 07-07-2019 0:12:07 EDT by Jah Hurst
[2019-07-07] MEDS: Pantoprazole 40 MG in 0.9 % Sodium Chloride Mini Bag 100 ML IVC SCH ×3 (00:45→11:28)
[2019-07-07 02:47] LABS: Hematocrit 25.4 % (37.5-50.1); Hemoglobin 8.8 g/dL (12.9-16.9)
[2019-07-07 03:06] LABS: BUN/Creatinine Ratio 14 (6-26); Blood Urea Nitrogen 13 mg/dL (6-20); Calcium 8.4 mg/dL (8.6-10.3); Carbon Dioxide 24 mEq/L (23-29); Chloride 109 mEq/L (98-107); Glucose 101 mg/dL (70-105); Magnesium 1.9 mg/dL (1.6-2.6); Osmolality,Calculated 288 (280-300); Phosphorous 3.1 mg/dL (2.7-4.5); Potassium 3.3 mEq/L (3.5-5.1); Sodium 139 mEq/L (136-145); eGFR For African Americans > 60 (> 60); eGFR For Non-African Americans > 60 (> 60)
--- NOTE | 2019-07-07 07:32 | Internal Med Progress Note ---
Hospitalist Progress Note - Encounter Date of Encounter: 07/07/19 - Exam Vitals: Temp Pulse Resp BP Pulse Ox 97.5 F L 63 16 122/78 95 07/07/19 06:44 07/07/19 06:44 07/07/19 06:44 07/07/19 06:44 07/07/19 06:44 - Assessment and Plan (1) Syncope Current Visit: Yes Status: Acute (2) Anemia Current Visit: Yes Status: Acute - Time Spent with Patient Total time spent is greater than 50% in coordination of care (as documented) at patient's floor/unit and/or counseling patient: Internal Medicine: Result - Labs CBC & Chem 7: 07/07/19 02:36 07/07/19 02:36 Labs: Short CBC 07/06/19 07/06/19 07/07/19 Range/Units 15:04 20:36 02:36 Hgb 9.5 L D 8.6 L 8.8 L (12.9-16.9) g/dL Hct 28.1 L 25.1 L 25.4 L (37.5-50.1) % BMP 07/07/19 02:36 Sodium 139 Potassium 3.3 L Chloride 109 H Carbon Dioxide 24 BUN 13 Creatinine 0.95 Glucose 101 Calcium 8.4 L - ABG Interpretation ABG results: PT/INR, D-dimer PT 11.9 Seconds (9.4-12.1) 07/06/19 04:52 Consult Discharge Plan - Plan Referrals: NONE,PCP [Primary Care Provider] - (2) Anemia Qualifiers: Anemia type: unspecified type Qualified Code(s): D64.9 - Anemia, unspecified
[2019-07-07 08:25] LABS: % Iron Saturation 11 % (20-55); Iron 28 mcg/dL (65-175); Transferrin 187 mg/dL (203-362)
[2019-07-07 08:43] LABS: Ferritin 88 ng/mL (20-250)
[2019-07-07 08:59] LABS: Hematocrit 28.8 % (37.5-50.1); Hemoglobin 9.7 g/dL (12.9-16.9)
--- NOTE | 2019-07-07 10:48 | Gastroenterology Progress Note ---
<Eliz Frye - Last Filed: 07/07/19 14:25> Date of Encounter: 07/07/19 Time of Encounter: 10:47 - Assessment and plan (1) Anemia due to GI blood loss Status: Acute Assessment and plan: Mr. Almonte presented to the ED after syncopal episode on 07/05/19. CBC showed hemoglobin of 9.9 at admission, next day hemoglobin decreased to 8.0, this morning hemoglobin 9.7 Hemoccult was positive Does report history of taking Advil few times a week and had increased intake in the past few days Reported episodes of melena at home prior to presentation no further episodes of melena since admission Iron studies show low iron iron with low percent saturation, would benefit from iron supplementation upon discharge Continue to avoid any NSAIDs EGD showed cratered appearing esophageal ulcer Recommend 1 gram carafate QID and pantaprozole 40 mg BID Further recommendations by Dr. Perez - Time Spent With Patient Total time spent is greater than 50% in coordination of care (as documented) at patient's floor/unit and/or counseling patient: - Subjective Interval history: Mr. Almonte is seen at bedside this morning. He was resting comfortably denied any nausea or emesis. Additionally reported no further episodes of melena since admission. Hemoglobin has stayed at his baseline. Admission was 9.9 decreased to 8.0, this morning and 9.7. - Constitutional Vitals: Temp Pulse Resp BP Pulse Ox 97.5 F L 63 16 122/78 95 07/07/19 06:44 07/07/19 06:44 07/07/19 06:44 07/07/19 06:44 07/07/19 06:44 - Head Head exam: Present: atraumatic, normocephalic - Eye Eye exam: Present: EOMI, normal appearance, sclera anicteric. Absent: conjunctival injection - ENT ENT exam: Present: mucous membranes moist, normal oropharynx - Neck Neck exam general surgery: Present: full ROM, trachea midline - Respiratory Respiratory exam: Present: CTAB. Absent: rhonchi, wheezes - Cardiovascular Cardiovascular exam: Present: RRR, +S1, +S2 - GI/Abdominal GI/Abdominal exam: Present: normal bowel sounds, soft. Absent: distended, tenderness - Extremities Exam Extremities exam: Present: full ROM. Absent: pedal edema - Neurological Exam Neurological exam: Present: alert, oriented X3 Results - Labs CBC & Chem 7: 07/07/19 08:39 07/07/19 02:36 Labs: Last Result 07/07/19 02:36 Calcium 8.4 L Iron 28 L % Saturation 11 L Transferrin 187 L Ferritin 88 Entire Visit 07/07/19 07/07/19 07/07/19 02:36 02:36 08:39 Hgb 8.8 L 9.7 L Hct 25.4 L 28.8 L Ferritin 88 - ABG ABG results: PT/INR, D-dimer PT 11.9 Seconds (9.4-12.1) 07/06/19 04:52 Consult Discharge Plan - Plan Referrals: Perez Elise MD [Partnered Physician] - (Office will call patient with appointment. Thank you) Crow Perez MD [Partnered Physician] - (Office will call patient with appointment. Thank you) Prescriptions: Sucralfate [Carafate] 1 gm PO QIDAC 28 Days #112 tablet Pantoprazole Sodium [Protonix] 40 mg PO BID 14 Days #28 tablet.dr <Crow Perez - Last Filed: 07/20/19 07:47> Date of Encounter: 07/07/19 - Time Spent With Patient Total time spent is greater than 50% in coordination of care (as documented) at patient's floor/unit and/or counseling patient: - Constitutional Vitals: Temp Pulse Resp BP Pulse Ox 97.6 F 62 16 125/80 98 07/07/19 15:00 07/07/19 15:00 07/07/19 15:00 07/07/19 15:00 07/07/19 15:00 Results - Labs CBC & Chem 7: 07/07/19 14:43 07/07/19 02:36 - ABG ABG results: PT/INR, D-dimer PT 11.9 Seconds (9.4-12.1) 07/06/19 04:52 - Attending Attestation Patient with syncopal episode secondary to GI bleed and severe anemia. Has been taking Ibuprofen. Plan EGD. I examined this patient and my medical decision-making was reviewed with the Resident Physician. I agree with the documented findings, disposition and treatment plan as described except to the extent set forth below.
[2019-07-07] MEDS ORDERED: Propofol 500 MG/50 ML INFUS..BTL ONE (12:09)
[2019-07-07] MEDS ORDERED: Lidocaine -MPF 2% 2 ML VIAL ONE (12:10)
--- NOTE | 2019-07-07 12:56 | Anesthesia Evaluation PreOp ---
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 Other Medical History: Bleeding (ANEMIA, POSITIVE HEMOCCULT) Anesthesia History: No Prior Anesthetic Complications, Past Anesthesia Alcohol Use: rarely Drug use: none Medications and Allergies No Known Home Drugs 07/05/19 [History] Allergy/AdvReac Type Severity Reaction Status Date / Time No Known Allergies Allergy Verified 07/05/19 16:23 - Meds/Allergy Pre-op Review Medications Reviewed: Yes Allergies Reviewed: Yes Anesthesia Results - Labs 07/07/19 08:39 07/07/19 02:36 Anesthesia Exam Vital Signs/O2 Sat, Most Current Temp Pulse Resp BP Pulse Ox 97.5 F L 63 18 140/76 95 07/07/19 06:44 07/07/19 12:43 07/07/19 12:43 07/07/19 12:43 07/07/19 12:43 Weight: 95 KG - BMI 30 NPO (# of Hours): 8 - HEENT Mallampati: I Teeth: Normal - Cardiac Rhythm: Regular - Pulmonary Breath Sounds: bilateral Clear Anesthesia Assess/Plan ASA Score: 2 Anesthetic Plan: MAC Monitoring Plan: Standard Monitors Recovery Plan: Other
[2019-07-07] MEDS ORDERED: Iron Sucrose Complex 200 MG in 0.9 % Sodium Chloride 100 ML IVPB ONE (14:03)
--- NOTE | 2019-07-07 14:13 | Discharge Summary ---
<Skinny Yun I - Last Filed: 07/07/19 14:49> - NOTES TO OUTPATIENT PROVIDER Notes to Outpatient Provider: Patient admitted due to syncope attack , was diagnosed with dudenal ulcer . he is stable will be discharged home on carafate and protonix . follow up with [facility] . and urology due to renal cyst Orders not resulted at time of discharge: Pending orders 07/06/19 04:00 Urinalysis reflex Microscopic [URIN] AM 0400 07/07/19 13:24 Cytology Other [PTH] Routine Date of Encounter: 07/07/19 Time of Encounter: 09:30 - Discharge Diagnosis (1) Syncope Priority: Primary Status: Acute Qualifiers: Qualified Code(s): R55 - Syncope and collapse (2) Anemia Priority: Secondary Status: Acute Qualifiers: Anemia type: unspecified type Qualified Code(s): D64.9 - Anemia, unspecified Hospital course: Mr. Almonte is a 54 year old male admitted after asyncope attack which lasted 5- 7 mins , patient has no past medical history , he had one seizure episode 10 years ago and was said it is due to seizure . this time he had lightheadedness before syncope with no jacquelyn biting or fecal or urinary incontinence during the attack . patient also said his stool was dark last week and he took extra advil . here in hospital his hb was dropped down to 8 GI was consulted and endoscopy was done and it show large duodenal ulcer , the biopsy result is still pending . Ct head was negative CTA of chest and pelvis and abdomen showes a 2.5 cm renal cyst to be followed up as outpatient . patient is stable today his hb is back to 9 . he understand the treatment and paln . will be discharged home on carafate QID for 28 days and protonix BID for two weeks and follow up with GI and urology . - Time Spent with Patient Total time spent providing and/or coordinating discharge services: - Discharge Medications Prescriptions: New Sucralfate [Carafate] 1 gm PO QIDAC 28 Days #112 tablet Pantoprazole Sodium [Protonix] 40 mg PO BID 14 Days #28 tablet. Home Medications: Pantoprazole Sodium [Protonix] 40 mg PO BID 14 Days #28 tablet. 07/07/19 [Rx] Sucralfate [Carafate] 1 gm PO QIDAC 28 Days #112 tablet 07/07/19 [Rx] Allergies/Adverse Reactions: Allergy/AdvReac Type Severity Reaction Status Date / Time No Known Allergies Allergy Verified 07/05/19 16:23 Date of admission: 07/05/19 08:28 Primary care physician: PCP NONE Consults: 07/06/19 05:28 Consult to Urology [CONS] Routine Consulting Provider: [facility] Reason for Consult: Left renal mass Call Completed: Yes 07/06/19 05:41 Consult to Gastroenterology [CONS] Routine Consulting Provider: [facility] Reason for Consult: Anemia in the setting of multiple Hemoccult and syncope Call Completed: Yes Discharging clinician: Markie Bernal Anticipated date of discharge: 07/07/19 - Constitutional Vitals: Temp Pulse Resp BP Pulse Ox 98.4 F 64 15 108/63 96 07/07/19 14:00 07/07/19 14:00 07/07/19 14:00 07/07/19 14:00 07/07/19 14:00 General appearance: Present: A&O X 3 Exam: . - Head Head exam: Present: atraumatic, normal inspection - Eye Eye exam: Present: PERRL - Neck Neck exam general surgery: Present: full ROM, trachea midline - Respiratory Respiratory exam: Present: CTAB - Cardiovascular Cardiovascular exam: Present: RRR, +S1, +S2 - GI/Abdominal GI/Abdominal exam: Present: normal bowel sounds, soft, no peritoneal signs - Neurological Exam Neurological exam: Present: alert, CN II-XII intact, normal gait, oriented X3, no focal deficits - Psychiatric Psychiatric exam: Present: normal affect, normal mood - Skin Skin exam: Present: intact, normal color - Patient Status Disposition: Home, Self-Care Condition: Good Functional capacity at discharge: independent ambulation Overall status at discharge: patient is back to baseline - Discharge Instructions Follow Up With: Crow Perez MD [Partnered Physician] - Perez Elise MD [Partnered Physician] - - Diet and Activity Activity: increase activity as tolerated Diet: advance to your usual diet <Markie Bernal - Last Filed: 07/07/19 15:28> Orders not resulted at time of discharge: Pending orders 07/06/19 04:00 Urinalysis reflex Microscopic [URIN] AM 0400 07/07/19 13:24 Cytology Other [PTH] Routine Date of Encounter: 07/07/19 Time of Encounter: 15:26 - Discharge Diagnosis (1) Laceration Status: Acute (2) Anemia Status: Acute Qualifiers: Anemia type: unspecified type Qualified Code(s): D64.9 - Anemia, unspecified (3) Left renal mass Status: Acute (4) Syncope Status: Acute Qualifiers: Qualified Code(s): R55 - Syncope and collapse Hospital course: Mr. Almonte is a 54 year old male - Time Spent with Patient Total time spent providing and/or coordinating discharge services: Date of admission: 07/05/19 08:28 Primary care physician: PCP NONE Consults: 07/06/19 05:28 Consult to Urology [CONS] Routine Consulting Provider: [facility] Reason for Consult: Left renal mass Call Completed: Yes 07/06/19 05:41 Consult to Gastroenterology [CONS] Routine Consulting Provider: [facility] Reason for Consult: Anemia in the setting of multiple Hemoccult and syncope Call Completed: Yes - Constitutional Vitals: Temp Pulse Resp BP Pulse Ox 97.6 F 62 16 125/80 98 07/07/19 15:00 07/07/19 15:00 07/07/19 15:00 07/07/19 15:00 07/07/19 15:00 - Attending Attestation I saw evaluated and examined this patient and reviewed objective data including labs and my medical decision-making was reviewed with the Resident Physician, Skinny Yun. I agree with the documented findings, disposition and discharge plan as described except to any changes set forth below. We independently had [id number] contact with the patient. 54-year-old male patient with no significant past medical history was hospitalized here after a syncopal episode. He was found to have anemia which progressively worsened during his stay here. He had been having melena at home. He does chronically take NSAIDs. He was kept nothing by mouth. Placed on IV PPI. GI was consulted and patient underwent upper GI endoscopy which showed a nonbleeding esophageal ulcer, benign esophageal stenosis, gastritis and one nonbleeding duodenal ulcer. Most likely due to chronic NSAID use. GI recommends Protonix and sucralfate and repeat upper GI endoscopy in 4 weeks to check healing. Patient will be discharged later today and will follow up with GI after discharge. His hemoglobin levels have been stable since yesterday afternoon. He has not had any further episodes of melena. Time spent on discharge:
[2019-07-07 15:03] LABS: Hematocrit 29.2 % (37.5-50.1); Hemoglobin 9.8 g/dL (12.9-16.9)
[2019-07-07 15:07] VITALS: BP 125/80
== END 2019-07-07 15:35 | disposition home or self-care (01) ==
LOC: EMEROOARM 04:19 → 3ANU 04:19 → SUATTDRO 08:28 → 3ANU 09:34
PROVIDERS: ADMIT Internal Medicine Nephrology; ATTEND Internal Medicine

== ENCOUNTER 2020-11-07 04:27 | Observation (INO) ==
[2020-11-07] MEDS ORDERED: 0.9 % Sodium Chloride 1,000 ML IVC ONE ×2 (04:30→05:43)
[2020-11-07] MEDS ORDERED: Pantoprazole 40 MG VIAL IVP ONE (04:31)
[2020-11-07] MEDS: Pantoprazole 40 MG in 0.9 % Sodium Chloride Mini Bag 100 ML IVC SCH ×4 (04:49→22:32)
[2020-11-07 04:56] LABS: Basophils # 0.1 K/mcL (0.0-0.2); Basophils % 0.4 %; Eosinophils # 0.2 K/mcL (0.0-0.6); Eosinophils % 0.8 %; Hematocrit 36.1 % (37.5-50.1); Hemoglobin 12.4 g/dL (12.9-16.9); Immature Granulocytes % 0.7 % (0-4); Lymphocytes % 22.4 %; Mean Corpuscular HGB Conc 34.3 g/dL (31.6-35.5); Mean Corpuscular Hemoglobin 31.2 pg (28.0-33.3); Mean Corpuscular Volume 90.9 fL (83.0-100.0); Mean Platelet Volume 11.4 fL (9.4-12.4); Monocytes # 0.9 K/mcL (0.0-1.3); Monocytes % 5.2 %; Neutrophils # 12.5 K/mcL (1.6-8.9); Platelet Count 274 K/mcL (140-400); Red Blood Count 3.97 M/mcL (4.19-5.50); Red Cell Distribution Width 12.3 % (11.5-14.5); Segmented Neutrophils % 70.5 %; White Blood Count 17.8 K/mcL (4.3-11.1)
[2020-11-07 05:02] LABS: INR 1.2; Prothrombin Time 13.9 Seconds (9.4-12.1)
[2020-11-07 05:04] LABS: Activated Partial Thrombo Time 22.6 Seconds (26.0-36.0)
[2020-11-07 05:20] LABS: BUN/Creatinine Ratio 45 (6-26); Blood Urea Nitrogen 44 mg/dL (6-20); Calcium 8.5 mg/dL (8.6-10.3); Carbon Dioxide 21 mEq/L (23-29); Chloride 111 mEq/L (98-107); Glucose 186 mg/dL (70-105); Magnesium 1.8 mg/dL (1.6-2.6); Osmolality,Calculated 310 (280-300); Potassium 4.1 mEq/L (3.5-5.1); Sodium 142 mEq/L (136-145); Troponin I < 0.03 ng/mL (< 0.04); eGFR For African Americans > 60 (> 60); eGFR For Non-African Americans > 60 (> 60)
[2020-11-07] MEDS ORDERED: Naloxone 0.4 MG/ML INJ IVP PRN (05:40)
[2020-11-07] MEDS ORDERED: Isovue-370 500 ML BOTTLE IVP ONE (05:40)
[2020-11-07] MEDS ORDERED: Ondansetron 4 MG/2 ML VIAL IVP PRN (05:40)
[2020-11-07] MEDS ORDERED: *HR* Promethazine 25 MG/ML VIAL IM PRN (05:40)
[2020-11-07 06:45] LABS: Alanine Aminotransferase 18 Units/L (7-52); Albumin 3.6 g/dL (3.5-5.7); Albumin/Globulin Ratio 1.6 (1.1-2.2); Alkaline Phosphatase 50 Units/L (34-104); Aspartate Amino Transferase 11 Units/L (13-39); Bilirubin,Direct 0.1 mg/dL (0.0-0.2); Bilirubin,Indirect 0.5 mg/dL (0.0-1.0); Bilirubin,Total 0.6 mg/dL (0.3-1.0); Globulin 2.2 g/dL (2.4-3.5); Total Protein 5.8 g/dL (6.4-8.9)
[2020-11-07 09:17] LABS: Estimated Average Glucose 117 mg/dl; Hemoglobin A1C 5.7 %
[2020-11-07 10:20] LABS: Hematocrit 32.9 % (37.5-50.1); Hemoglobin 11.2 g/dL (12.9-16.9)
[2020-11-07] MEDS: 0.9 % Sodium Chloride 1,000 ML IVC SCH ×3 (11:00→19:20)
[2020-11-07] MEDS ORDERED: *HR* Propofol 200 MG/20 ML VIAL IVP ONE (12:20)
[2020-11-07] MEDS ORDERED: Lidocaine -MPF 2% 2 ML VIAL ONE (12:20)
[2020-11-07] MEDS ORDERED: SODIUM CHLORIDE/NAHCO3/KCL/PEG 4,000 ML SOLN.RECON PO ONE (17:00)
[2020-11-07 18:28] LABS: Hematocrit 32.8 % (37.5-50.1)
[2020-11-08] MEDS: Pantoprazole 40 MG in 0.9 % Sodium Chloride Mini Bag 100 ML IVC SCH ×3 (03:25→08:18)
[2020-11-08 04:56] LABS: Basophils % 0.4 %; Eosinophils # 0.1 K/mcL (0.0-0.6); Eosinophils % 1.8 %; Hematocrit 25.6 % (37.5-50.1); Hemoglobin 8.7 g/dL (12.9-16.9); Immature Granulocytes % 0.3 % (0-4); Lymphocytes # 2.1 K/mcL (0.6-4.6); Lymphocytes % 27.1 %; Mean Corpuscular Hemoglobin 31.3 pg (28.0-33.3); Mean Corpuscular Volume 92.1 fL (83.0-100.0); Mean Platelet Volume 11.5 fL (9.4-12.4); Monocytes # 0.5 K/mcL (0.0-1.3); Monocytes % 6.3 %; Neutrophils # 4.9 K/mcL (1.6-8.9); Platelet Count 176 K/mcL (140-400); Red Blood Count 2.78 M/mcL (4.19-5.50); Red Cell Distribution Width 12.7 % (11.5-14.5); Segmented Neutrophils % 64.1 %; White Blood Count 7.7 K/mcL (4.3-11.1)
[2020-11-08 05:22] LABS: Alanine Aminotransferase 11 Units/L (7-52); Albumin/Globulin Ratio 1.8 (1.1-2.2); Alkaline Phosphatase 36 Units/L (34-104); Aspartate Amino Transferase 9 Units/L (13-39); BUN/Creatinine Ratio 23 (6-26); Bilirubin,Total 0.4 mg/dL (0.3-1.0); Blood Urea Nitrogen 19 mg/dL (6-20); Calcium 7.5 mg/dL (8.6-10.3); Carbon Dioxide 22 mEq/L (23-29); Chloride 112 mEq/L (98-107); Globulin 1.7 g/dL (2.4-3.5); Glucose 94 mg/dL (70-105); Osmolality,Calculated 292 (280-300); Potassium 3.5 mEq/L (3.5-5.1); Sodium 140 mEq/L (136-145); Total Protein 4.7 g/dL (6.4-8.9); eGFR For African Americans > 60 (> 60); eGFR For Non-African Americans > 60 (> 60)
[2020-11-08] MEDS ORDERED: Lidocaine -MPF 2% 2 ML VIAL ONE (12:49)
[2020-11-08] MEDS ORDERED: *HR* PHENYLEPHRINE 1,000 MCG/10 ML SYRINGE IVP ONE (13:19)
[2020-11-08 13:44] VITALS: BP 109/75
== END 2020-11-08 16:23 | disposition home or self-care (01) ==
LOC: EMEROOARM 04:27 → 2ANU 04:27 → SUATTDRO 05:55 → 2ANU 06:42
PROVIDERS: ADMIT Internal Medicine Nephrology; ATTEND Internal Medicine
PROC: ENDOCBX (2020-11-08 15:15)